=== PATIENT | female | born 1965 | race Two or more races ===

== ENCOUNTER 2024-09-01 06:52 | Day surgery (SDC) | payer OTHER ==
[2024-09-01] VITALS (8 sets, daily range): BP systolic 106–129; BP diastolic 68–84; PULSE 64–75; RESP 16; TEMP 97.9; O2SAT 93–98
[~2024-09-01] VITALS: Ht 157.5 cm; Wt 42.0 kg
[2024-09-01] MEDS ORDERED: CHOL100046 PO (07:36)
[2024-09-01] MEDS ORDERED: ATOR20TA66 PO (07:36)
[2024-09-01] MEDS ORDERED: AMIT10TA6 PO (07:36)
[2024-09-01] MEDS ORDERED: HYDR200T73 PO (07:36)
[2024-09-01] MEDS ORDERED: DILT120T3 PO (07:36)
[2024-09-01] MEDS ORDERED: NAPR-1168 PO (07:36)
[2024-09-01] MEDS ORDERED: vitamin B12 PO (07:36)
[2024-09-01] MEDS: diphenhydrAMINE 25mg capsule PO PRN (07:48)
[2024-09-01] MEDS: normal saline 1,000 ML IV SCH (07:48)
[2024-09-01] MEDS: LORazepam 0.5 MG tablet PO PRN (07:48)
[2024-09-01] MEDS ORDERED: verapamil 2.5 mg/ml inj IV ONE (08:14)
[2024-09-01] MEDS ORDERED: LIDOcaine 1% (10mg/ml) 2ml vial ONE (08:14)
[2024-09-01] MEDS ORDERED: fentaNYL/PF 50MCG/1 ML 2ML syringe ONE (08:14)
[2024-09-01] MEDS ORDERED: midazolam 1 mg/ML 2ml injection ONE (08:14)
[2024-09-01] MEDS ORDERED: heparin 1,000unit/ml 10ml vial 10 ML ONE (08:14)
[2024-09-01] MEDS ORDERED: nitroGLYCERIN 500mcg/5mL D5W 5 ML IV ONE (08:15)
[2024-09-01] MEDS ORDERED: iohexol 350MG/ML 100ml bottle IV ONE (08:15)
[2024-09-01] MEDS ORDERED: HYDROcodone/acetaminophen 5mg/325mg tablet PO PRN (09:55)
[2024-09-01] MEDS ORDERED: HYDROcodone/acetaminophen 10/325mg tab PO PRN (09:55)
== END 2024-09-01 12:30 | disposition home or self-care (01) ==
LOC: SSTAY O 06:52
PROVIDERS: ATTEND Student in an Organized Health Care Education/Training Program
DX: R94.39 Abnormal result of other cardiovascular function study (principal); I25.10 Atherosclerotic heart disease of native coronary artery without angina pectoris; I10 Essential (primary) hypertension; E78.5 Hyperlipidemia, unspecified; Z91.040 Latex allergy status
CPT/HCPCS: 93005; 93458; A6258; J1644; J2003; J2250; J3010; J3490; J7030; Q0163; Q9967; 99152; A6402; C1894